=== PATIENT | female | born 1935 | race Caucasian/White ===

== ENCOUNTER 2018-04-22 09:41 | Outpatient (CLI) | payer OTHER | END 2018-04-22 10:02 | disposition home or self-care (01) | LOC: LAB 09:41 | DX: D51.3 Other dietary vitamin B12 deficiency anemia (principal); D51.8 Other vitamin B12 deficiency anemias; E78.2 Mixed hyperlipidemia; E03.8 Other specified hypothyroidism; D50.8 Other iron deficiency anemias; I10 Essential (primary) hypertension; D55.0 Anemia due to glucose-6-phosphate dehydrogenase [G6PD] deficiency; D51.1 Vitamin B12 deficiency anemia due to selective vitamin B12 malabsorption with proteinuria; D51.0 Vitamin B12 deficiency anemia due to intrinsic factor deficiency; E06.3 Autoimmune thyroiditis ==

== ENCOUNTER 2018-07-22 11:16 | Outpatient (CLI) | payer OTHER | END 2018-07-22 15:08 | disposition home or self-care (01) | LOC: LAB 11:16 | DX: D51.0 Vitamin B12 deficiency anemia due to intrinsic factor deficiency (principal); D51.1 Vitamin B12 deficiency anemia due to selective vitamin B12 malabsorption with proteinuria; D51.3 Other dietary vitamin B12 deficiency anemia; E78.2 Mixed hyperlipidemia; E03.8 Other specified hypothyroidism; D50.8 Other iron deficiency anemias; I10 Essential (primary) hypertension; E06.3 Autoimmune thyroiditis ==

== ENCOUNTER → 2018-12-09 10:34 | Outpatient (CLI) | payer OTHER | END | disposition home or self-care (01) | LOC: LAB 10:34 | DX: D51.0 Vitamin B12 deficiency anemia due to intrinsic factor deficiency (principal); D51.1 Vitamin B12 deficiency anemia due to selective vitamin B12 malabsorption with proteinuria; D51.3 Other dietary vitamin B12 deficiency anemia; E78.2 Mixed hyperlipidemia; E03.8 Other specified hypothyroidism; D51.8 Other vitamin B12 deficiency anemias; I10 Essential (primary) hypertension ==

== ENCOUNTER 2020-03-25 10:14 | Outpatient (CLI) | payer OTHER | END 2020-03-25 18:00 | disposition home or self-care (01) | LOC: LAB 10:14 | PROVIDERS: ATTEND Internal Medicine Hematology & Oncology | DX: D50.8 Other iron deficiency anemias (principal); I10 Essential (primary) hypertension; D51.8 Other vitamin B12 deficiency anemias; E03.8 Other specified hypothyroidism; R97.0 Elevated carcinoembryonic antigen [CEA]; R97.8 Other abnormal tumor markers; D51.0 Vitamin B12 deficiency anemia due to intrinsic factor deficiency; D51.1 Vitamin B12 deficiency anemia due to selective vitamin B12 malabsorption with proteinuria; D51.3 Other dietary vitamin B12 deficiency anemia; D72.818 Other decreased white blood cell count; E78.2 Mixed hyperlipidemia ==

== ENCOUNTER 2020-07-26 09:04 | Outpatient (CLI) | payer OTHER | END 2020-07-26 15:00 | disposition home or self-care (01) | LOC: LAB 09:04 | PROVIDERS: ATTEND Internal Medicine Hematology & Oncology | DX: D50.8 Other iron deficiency anemias (principal); R74.02 Elevation of levels of lactic acid dehydrogenase [LDH]; R79.89 Other specified abnormal findings of blood chemistry; K76.89 Other specified diseases of liver; D51.8 Other vitamin B12 deficiency anemias; R19.5 Other fecal abnormalities; E03.8 Other specified hypothyroidism; R97.0 Elevated carcinoembryonic antigen [CEA]; R97.8 Other abnormal tumor markers; D51.3 Other dietary vitamin B12 deficiency anemia; D72.818 Other decreased white blood cell count; I10 Essential (primary) hypertension; D51.1 Vitamin B12 deficiency anemia due to selective vitamin B12 malabsorption with proteinuria; E78.49 Other hyperlipidemia ==